=== PATIENT | female | born 1960 | race Caucasian/White ===

== ENCOUNTER 2021-02-14 10:55 | Day surgery (SDC) | payer BC ==
[2021-01-16 13:01] VITALS: BMI 41.6
[2021-02-14] MEDS ORDERED: LIDOCAINE HCL 1%, 10 MG/ML (20ML VIAL) ONE (12:20)
[2021-02-14] MEDS ORDERED: BUPIVACAINE HCL 100 ML ONE (12:21)
[2021-02-14] MEDS ORDERED: TRIAMCINOLONE ACET 40MG/1ML VIAL ONE (12:34)
[2021-02-14] MEDS ORDERED: MIDAZOLAM HCL 2 MG/2 ML SINGLE DOSE VIAL ONE (12:46)
[2021-02-14] MEDS ORDERED: PROPOFOL 20 ML ONE ×3 (12:46)
[2021-02-14] MEDS ORDERED: oxyCODONE HCL 5 MG TABLET PO PRN ×2 (14:28)
[2021-02-14] MEDS ORDERED: ONDANSETRON 4 MG/2 ML VIAL IVPUSH PRN (14:28)
[2021-02-14] MEDS ORDERED: PROMETHAZINE HCL 25 MG/1 ML VIAL IVPB PRN (14:28)
[2021-02-14 15:15] VITALS: TEMP 96.9
[2021-02-14 15:52] VITALS: BP 134/84; PULSE 84
== END 2021-02-14 15:52 | disposition home or self-care (01) ==
LOC: FASU 10:55
PROVIDERS: ATTEND Podiatrist Foot Surgery
PROC: 3E0133Z Introduction of Anti-inflammatory into Subcutaneous Tissue, Percutaneous Approach (ICD-10-PCS; 2021-02-14)
PROC: 0SGP07Z Fusion of Right Toe Phalangeal Joint with Autologous Tissue Substitute, Open Approach (ICD-10-PCS; principal; 2021-02-14 13:20)
DX: M20.41 Other hammer toe(s) (acquired), right foot (principal)
CPT/HCPCS: 73630-TC-RT-FY; 94760